=== PATIENT | female | born 1990 | race African-American/Black ===

== ENCOUNTER 2018-09-26 21:52 | Inpatient (IN) | payer OTHER ==
[~2018-09-26] VITALS: Ht 162.6 cm; Wt 94.1 kg
[~2018-09-26 21:52] MED LIST: DICL10TA PO; DOCU10CA PO; MAPA500T2 PO; MOTR200T44 PO; PRENTAB40 PO; PRENTAB43 PO
[2018-09-26] MEDS: LR 1,000 ML IV SCH (22:38)
[2018-09-26] MEDS ORDERED: LACTATED RINGER'S 1000 ML IV STA (22:38)
[2018-09-26 22:45] VITALS: BP 130/75
--- NOTE | 2018-09-26 22:55 | HPEPDOC ---
Obstetrical History & Physical General Date of Admission Sep 26, 2018 History of Present Illness 28 yo at 38+6 weeks by LMP of [id number] c/w 1st trimester US presents to L&D after having a large gush of fluid at 2100 followed by continuous leaking. The fluid was clear. She endorses intermittent contractions. She denies any vaginal bleeding. She endorses excellent movement. is uncomplicated. 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 Past Medical History Medical History Denies Surgical History: [place] teeth Family History Significant Family History: No pertinent family hx Family History Noncontributory Social History Marital Status: Family situation: Spouse/partner home Psychosocial History: No pertinent psych hx * Smoker: non-smoker Alcohol: Denies Drugs: denies Imunizations Tdap status: current Influenza Status: current Allergies Coded Allergies: No Known Allergies (Unverified , 04/13/15) Medications Miscellaneous Medications Multivitamins/ ( Multivitamin-Ult) 1 Tab Tab, 1 TAB PO Physical Examination Physical Examination GENERAL: Alert and oriented times three. ABDOMEN: Gravid and non-tender to touch. FETUS: Is vertex (VTX) by sterile vaginal examination (SVE) EXTREMITIES: No edema. Laboratory Data Urine Culture: No Growth Pertinent Laboratoy Data Blood Type: B+ RBC Antibody Screen: Negative HIV: Negative Hepatitis B: Negative Hepatitis C: Unknown Rapid Plasma Reagin: Nonreactive Rubella: Immune Varicella: Immune Chlamydia/Gonorrhea: Negative Group B Streptococcus: Negative Quad Screen Test: Unknown Cystic Fibrosis: Positive (FOB tested and negative) Glucose Tolerance Test: 166 (1hr of 166, 3hr GTT normal) Anatomy Ultrasound Placenta Location: Anterior Normal Anatomy: Yes Placenta Previa: No Steroid Therapy Steroid Therapy: No Vaginal Examination Dilation: 2cm Effacement: 70% Station: -3 Cervical Consistency: Soft Cervical Position: Posterior Position: Vertex (occiput) Assessment Heart Rate (FHR): 135 Variability: Moderate Accelerations: Positive Decelerations: None Tocometer Contractions: Yes Frequency: irregular Strength: palpated as moderate Assessment/Plan Assessment 28 yo at 38+6 weeks presented with grossly ruptured membranes. Plan Admit for expectant management of labor. Will augment if clinically indicated. Apply IV fluids. GBS negative. Patient may have epidural if she desires. clear liquid diet Anticipate . Durga Smith, DO Labor and Delivery Counseling /VAVD/FAVD counseling: Description: Deliver your baby through the vagina with possible assistance of forceps or vacuum device if needed for maternal or indications. Forceps a nd vacuum are devices that can assist with vaginal delivery when normal pushing efforts cannot achieve delivery on their own or when delivery is needed in an emergency for baby's well-being. Medications may be required to induce or augment (help) your labor in order to achieve a vaginal delivery. An episiotomy may be required to help your baby to delivery vaginally. You may also require repair of any lacerations or tears of your vagina or vulva that are caused by delivery. In some cases, emergencies can occur that require an emergency section delivery so quickly that there may not be enough time to stop and complete consent forms for section. Understand that if this occurs, your providers will discuss the need for a section with you before they proceed with surgery. section is the delivery of your baby through an incision in your abdomen. In some situations, section may be safer to mom and baby than continuing labor and is only performed when clinically indicated. Risks of vaginal delivery include but are not limited to: Bleeding, infection, injury to the vagina, pelvic structures, injury to baby, damage to the uterus, reactions to anesthesia, uterine rupture, risk of hysterectomy for life threatening bleeding, or . Medications used to induce or augment labor may increase your risk for infection, uterine tachysystole, uterine rupture, heart rate abnormalities, need for emergency delivery or possible hysterectomy, and hemorrhage. Additional risks for use of forceps and vacuum include: increased risk of perineal and vaginal lacerations, risk of urinary or bowel incontinence, increased risk of injury to baby with bruising, scratches, hematomas on the head, or intracranial bleeding. Ms. Green verbalizes understanding of these risks and elects to proceed. She also consents to blood products for transfusion should they become necessary, All patient questions answered. DO BELLA Park CHRISTOPHER J. DO Sep 26, 2018 22:55
[2018-09-26] MEDS ORDERED: OXYTOCIN DRIP 30 UNITS in APPROPRIATE DILUENT 1 EA IV SCH (23:00)
[2018-09-26 23:18] LABS: HEMATOCRIT 37.8 % (36.0-47.0); HEMOGLOBIN 12.2 g/dl (12.0-15.5); MEAN CORPUSCULAR HGB CONC 32.3 g/dl (32.0-36.5); MEAN CORPUSCULAR VOLUME 95.9 fl (80.0-96.0); PLATELET COUNT, AUTOMATED 195 10^3/uL (150-450); RED BLOOD COUNT 3.94 10^6/uL (4.00-5.40); WHITE BLOOD COUNT 8.2 10^3/uL (4.0-10.0)
[2018-09-27] VITALS (46 sets, daily range): BP systolic 100–154; BP diastolic 56–101
--- NOTE | 2018-09-27 04:28 | IPNPDOC ---
Text Note Date of Service The patient was seen on 09/27/18. NOTE Contractions have spaced on monitor. She has had some periods of minimal va riability, and one brief variable decel down to the 60s with quick recovery. Cervix: 3/50/-3. FHR is overall reassuring moderate variability, +accels. Positional changes initiated and fluid bolus was given. Pitocin has been ordered for labor augmentation. Will continue to monitor closely. Safe to proceed. DO Luis VS,Saba, I+O VS, Saba, I+O Laboratory Tests 09/26/18 23:08 Red Blood Count 3.94 L, Mean Corpuscular Volume 95.9, Mean Corpuscular Hemoglobin 31.0, Mean Corpuscular Hemoglobin Concent 32.3, Red Cell Distribution Width 14.9 H Vital Signs Date Time Temp Pulse Resp B/P (MAP) Pulse Ox O2 Delivery O2 Flow Rate FiO2 09/27/18 03:11 98.4 84 123/71 (88) I&O- Last 24 Hours up to 6 AM 09/27/18 06:00 Intake Total 250 ml Output Total 550 ml Balance -300 ml CRISTOPHER BLANCO DO Sep 27, 2018 04:28
[2018-09-27] MEDS ORDERED: REFRIGERATOR IV KEYS XX PRN (06:30)
[2018-09-27] MEDS ORDERED: ePHEDrine SULFATE 25 MG/5 ML(5MG/ML) SYRINGE IV PRN (06:30)
[2018-09-27] MEDS ORDERED: NALOXONE INJ 0.4 MG/1 ML VIAL (J2310) IV PRN ×3 (06:30→14:00)
[2018-09-27] MEDS ORDERED: FENTANYL/ROPIVACAINE/NACL BAG 100 ML EPIDURAL SCH (06:30)
[2018-09-27] MEDS ORDERED: EPIDURAL/PCA KEYS XX PRN (06:30)
[2018-09-27] MEDS ORDERED: EPIDURAL COMMENT XX SCH (06:30)
[2018-09-27] MEDS ORDERED: ONDANSETRON 4MG/2ML VIAL (J2405) IV PRN ×3 (06:30→14:30)
[2018-09-27] MEDS ORDERED: diphenhydrAMINE INJ 50MG/ML VIAL (J1200) IV PRN ×2 (06:30→14:00)
[2018-09-27] MEDS ORDERED: LACTATED RINGER'S 1000 ML IV PRN (06:30)
[2018-09-27] MEDS ORDERED: FENTANYL 2MCG/ML ROPIVACAINE 0.2% IN 0.9% NACL 100ML IVBAG As Ordered ONE (06:33)
[2018-09-27] MEDS: LR 1,000 ML IV SCH (06:38)
--- NOTE | 2018-09-27 08:41 | NUR ---
[facility] L&D Progress Note S: Anu is a 28 yo at 39 weeks admitted Sep following PROM clear fluids at 2129. She reports comfort since JAVON placement. She denies questions/concerns for oncoming staff. O: VSS/AF GEN: A&Ox3 NAD ABD: Gravid, relaxed uterine resting tone FHR: CAT I FHR TOCO: ctx q4-8 min, mild intensity via palp SCE: deferred d/t prolonged ROM A/P: Anu is a 28 y/o at 39 weeks s/p PROM at 2130 on Sep. RH + GBS NEG. CAT I FHR. Will initiate oxytocin for augmentation at this time. Safe to proceed.
--- NOTE | 2018-09-27 12:14 | NUR ---
[facility] L&D Progress S: Called to bs by nursing staff for repetitive late decelerations refractory to IVF bolus, stopping oxytocin and maternal repositioning. O: VSS/AF GEN: A&Ox3 NAD ABD: Gravid, relaxed uterine resting tone FHR: 145 minimal to moderate variability, repetitive late decelerations + 10x10 to scalp stim TOCO: ctx q2-4min, mild intensity via palp SCE: 5/80/-1 A/P: Anu is a 28 y/o at 39 weeks s/p PROM at 2130 on Sep. RH + GBS NEG. CAT II FHR despite intrauterine resuscitation. FSE/IUPC placed at this time. Will continue to dc oxytocin, adm oxygen via NRB, IVF bolus and maintain lateral positioning. Dr. Felix has reviewed the FHR and is aware of current assessment. Will proceed w/ caution.
[2018-09-27] MEDS ORDERED: BICITRA 30ML SOLN UDC As Ordered ONE (12:41)
[2018-09-27] MEDS ORDERED: BUPIVACAINE HCL 0.25% 10 ML VIAL As Ordered ONE (12:41)
[2018-09-27] MEDS ORDERED: ceFAZolin 2 GM/D5W 50 ML IV BAG (J0690 PER 500MG) As Ordered ONE (12:42)
[2018-09-27] MEDS ORDERED: ACETAMINOPHEN 650 MG SUPP As Ordered ONE (12:42)
[2018-09-27] MEDS ORDERED: AZITHROMYCIN INJ 500MG VIAL (J0456) As Ordered ONE ×2 (12:43→12:52)
[2018-09-27] MEDS ORDERED: BICITRA 30ML SOLN UDC PO ONE (12:45)
[2018-09-27] MEDS ORDERED: LIDOCAINE 2% W/EPIN INJ 20ML **PRES FREE As Ordered ONE (12:47)
[2018-09-27] MEDS ORDERED: ONDANSETRON 4MG/2ML VIAL (J2405) As Ordered ONE (12:47)
[2018-09-27] MEDS ORDERED: OXYTOCIN INJ 10 UNITS/ML VIAL (J2590) As Ordered ONE (12:47)
[2018-09-27] MEDS ORDERED: ACETAMINOPHEN 650 MG SUPP PR ONE (13:00)
[2018-09-27] MEDS ORDERED: BUPIVACAINE HCL 0.25% 10 ML VIAL SC ONE (13:00)
[2018-09-27] MEDS ORDERED: AZITHROMYCIN INJ 500 MG, VIAL MATE ADAPTER 1 EACH in D5W 250 ML IV ONE (13:00)
[2018-09-27] MEDS ORDERED: dexameTHASONE 4 MG/ML 1ML VIAL (J1100) As Ordered ONE (13:17)
[2018-09-27] MEDS ORDERED: MORPHINE PRES-FREE INJ 10 MG/10 ML VIAL (J2274) As Ordered ONE (13:18)
[2018-09-27 13:37] LABS: CORD GAS HCO3 V 27.1 MEQ/L; CORD GAS O2 SAT V 34.4 %; CORD GAS PCO2 V 58.9 mmHg; CORD GAS PH V 7.281 UNITS; CORD GAS PO2 V 18.3 mmHg; CORD GAS SBC V 22.1 MEQ/L; CORD GAS TCO2 V 28.9 MEQ/L
[2018-09-27 13:41] LABS: CORD GAS ABE A -3.9; CORD GAS HCO3 A 25.9 MEQ/L; CORD GAS O2 SAT A < 15.0 %; CORD GAS PCO2 A 68.7 mmHg; CORD GAS PH A 7.194 UNITS; CORD GAS PO2 A < 10.0 mmHg
[2018-09-27] MEDS ORDERED: METOCLOPRAMIDE INJ 10MG/2ML VIAL (J2765) IV PRN (14:00)
[2018-09-27] MEDS ORDERED: ANUSOL HC CREAM 30GM TOP PRN (14:15)
[2018-09-27] MEDS ORDERED: MOM 30ML SUSPENSION UDC PO PRN (14:15)
[2018-09-27] MEDS ORDERED: PERCOCET 5MG/325MG TAB PO PRN (14:15)
[2018-09-27] MEDS ORDERED: MEASLES,MUMPS,RUBELLA VACCINE INJ (MMR-II) (90707) SC SCH (14:15)
[2018-09-27] MEDS ORDERED: METHYLERGONOVINE MALEATE 0.2 MG TAB PO PRN (14:15)
[2018-09-27] MEDS ORDERED: DOCUSATE SODIUM 100 MG CAP PO PRN (14:15)
[2018-09-27] MEDS ORDERED: RHOGAM 300 MCG (1500 IU) INJ (J2790) IM SCH (14:15)
[2018-09-27] MEDS ORDERED: NALBUPHINE HCL 10 MG/ML AMP (J2300) IV PRN (14:30)
[2018-09-27] MEDS ORDERED: KETOROLAC 30 MG/ML VIAL (J1885) As Ordered ONE (15:11)
[2018-09-27] MEDS: KETOROLAC 30 MG/ML VIAL (J1885) IV SCH ×2 (15:14→20:54)
[2018-09-27] MEDS: PRENATAL VITAMINS CHEWABLE TABLET PO SCH (16:19)
[2018-09-27] MEDS: NALBUPHINE HCL 10 MG/ML AMP (J2300) IV PRN (19:52)
[2018-09-28 02:22] VITALS: BP 113/68
[2018-09-28] MEDS: KETOROLAC 30 MG/ML VIAL (J1885) IV SCH (03:30)
[2018-09-28] MEDS: NALBUPHINE HCL 10 MG/ML AMP (J2300) IV PRN ×2 (03:31→10:45)
[2018-09-28 06:28] VITALS: BP 121/72
[2018-09-28 08:00] LABS: HEMATOCRIT 33.2 % (36.0-47.0); HEMOGLOBIN 10.6 g/dl (12.0-15.5); MEAN CORPUSCULAR HEMOGLOBIN 30.3 pg (27.0-33.0); MEAN CORPUSCULAR HGB CONC 31.9 g/dl (32.0-36.5); MEAN CORPUSCULAR VOLUME 94.9 fl (80.0-96.0); PLATELET COUNT, AUTOMATED 210 10^3/uL (150-450); WHITE BLOOD COUNT 17.5 10^3/uL (4.0-10.0)
[2018-09-28] MEDS: PRENATAL VITAMINS CHEWABLE TABLET PO SCH (09:02)
--- NOTE | 2018-09-28 09:14 | IPN ---
DATE: 09/27/2018 28-year-old 4, para 1 at 38 and 6 weeks of gestation, presented to labor and delivery with a large of amount of fluid followed by continuous leaking. She had intermittent contractions. Her past history is that she is a multigravida. She delivered in 2014 spontaneous vaginal delivery. Over the course of her labor, she was found to have intermittent variables with reduced baseline, the occasional late deceleration and despite multiple attempts at resuscitation with IV boluses, change of position, oxygen, the pattern never got any worse but it never got any better. On examination, she is found to be 5 cm, very high presenting part, clear liqua, not engaged in the pelvis, and was now having intermittent frequent late decelerations. After discussing the situation with parents, we explained to that she has remote from delivery and that this baby would not tolerate a long period of time with this and the fact that the baby was still in good shape with no evidence of significant issues that a primary section for nonreassuring heart tones, remote from delivery would be an option of choice. After discussing risks and benefits of section, including hemorrhage, infection, perforation, , reoperation, remote possibility hysterectomy, remote possibility of blood transfusion, remote possibility of the being admitted to intensive care unit (NICU), signed and witnessed consent form, and we are planning to go ahead and do a primary section for nonreassuring heart tones, remote from delivery.
--- NOTE | 2018-09-28 09:51 | IPN ---
DATE: 09/28/2018 day 1. This patient a 6, para 2, had a primary section for nonreassuring heart tones. Remote from delivery, she had spontaneous rupture of membranes and contractions. Delivered a live female 8 pounds 2 ounces, 3690 grams, scores of nine and nine at 1 and 5 minutes respectively. Her arterial pH 7.19, base excess -3.9, venous pH 7.28, base excess -1.0. Her vital signs today her blood pressure is 121/72, respirations are 18, pulse 74, temperature 97.6. Her admitting hemoglobin was 12.2, hematocrit 37.8 and platelets were 195. day 1 hemoglobin is still pending. We discussed phlebitis, cystitis, mastitis, endometritis, cellulitis, diet, exercise, pain management, perineal, breast and wound care. Abdomen was soft, uterus 2 below. Lochia is moderate. Incision is clean and dry. Four quadrant bowel sounds are noted. She has no evidence of cough, wheezes, shortness of breath or dyspnea on exertion. No deep vein thrombosis (DVT), pulmonary embolism (PE), or superficial phlebitis. She is unable to void at the present time and it is been more than 7 hours and we are going to straight cath her to see what the residual is. Pending that, will depend whether we implement clamp and drain over the next several hours. The patient is planned on discharge for tomorrow.
[2018-09-28 10:00] VITALS: BP 127/62
[2018-09-28] MEDS: IBUPROFEN 800 MG TAB PO SCH ×2 (10:38→19:05)
[2018-09-28 14:00] VITALS: BP 110/56
[2018-09-28 17:57] VITALS: BP 116/63
[2018-09-28 22:00] VITALS: BP 118/70
[2018-09-28] MEDS: PERCOCET 5MG/325MG TAB PO PRN (22:59)
[2018-09-29 02:00] VITALS: BP 114/60
[2018-09-29] MEDS: IBUPROFEN 800 MG TAB PO SCH ×2 (02:52→10:55)
[2018-09-29 06:00] VITALS: BP 126/64
[2018-09-29] MEDS: PRENATAL VITAMINS CHEWABLE TABLET PO SCH (07:43)
[2018-09-29] MEDS: PERCOCET 5MG/325MG TAB PO PRN (08:28)
--- NOTE | 2018-09-29 09:12 | IPNPDOC ---
Text Note Date of Service The patient was seen on 09/29/18. NOTE POD2 PCD States feeling well, pain controlled with prescribed meds. Baby bonding and feeding well. No heavy VB. Lochia slowing. Ambulatory X1. Tolerating PO without issues. Voiding spont many times since rodriguez out. VSSAF NAD A&O RRR CTAB LE no C/C/E Ut at U-2, [employer] C/D/I a/p: Doing well. Cont routine postop care. D/C this AM. Sessions VS,Saba, I+O VSSaba I+O Vital Signs Date Time Temp Pulse Resp B/P (MAP) Pulse Ox O2 Delivery O2 Flow Rate FiO2 09/29/18 08:28 18 09/29/18 06:00 97.1 88 126/64 (84) 98 I&O- Last 24 Hours up to 6 AM 09/29/18 05:59 Output Total 1000 ml Balance -1000 ml SESSIONS,RENAY Petersen MD Sep 29, 2018 09:12
[2018-09-29] MEDS ORDERED: OXYC1TAB23 PO ×2 (09:51→09:52)
[2018-09-29] MEDS ORDERED: COLA100C5 PO (09:51)
[2018-09-29] MEDS ORDERED: IBUP-1114 PO (09:51)
[2018-09-29] MEDS ORDERED: ANUS2.5C2 TOP (09:51)
--- NOTE | 2018-09-30 14:57 | RO ---
DATE OF PROCEDURE: 09/27/2018 PREOPERATIVE DIAGNOSES: Nonreassuring heart tones, persistent late decelerations, reduced variability, remote from delivery, failed resuscitations. POSTOPERATIVE DIAGNOSES: Nonreassuring heart tones, persistent late decelerations, reduced variability, remote from delivery, failed resuscitations, occiput posterior. OPERATION PROPOSED: Primary section. OPERATION PERFORMED: Primary section. ANESTHESIA: Spinal plus local anesthetic for intraperitoneal procedures. ESTIMATED BLOOD LOSS: 400 mL. SURGEON: Alfonso Felix MD LASER SPECIALIST: Gerhard, certified nurse visual basic developer, for extraction, retraction, and visualization. DESCRIPTION OF PROCEDURE: After adequate time-out, prepped and draped in the supine position, Brown catheter in the bladder draining clear urine. Acetaminophen suppository 1300 mg per rectum. Sequentials on board. Appropriate antibiotic therapy preoperatively. Pfannenstiel incision was made two fingerbreadths above the symphysis pubis passing through abdominal layers, securing hemostasis. Opening peritoneal cavity, bladder was reflected well down anteriorly, low transverse incision was made into the uterus. We extracted a livebirth female weighing 3690 grams, 8 pounds 2 ounces, scores of 9 and 9 at 1 and 5 minutes, respectively. Arterial pH 7.19, base excess -3.9, venous pH 7.28, base excess -1.0. Required to use the posterior blade of the to elevate the baby's head so we could compress and push it out of the abdomen. There were three-vessels, the cord membranes and tissues intact, seemed to be moderately calcified placenta. The uterine cavity was swept. No evidence of active retained products. The uterus contracted well down on Pitocin. The lower segment was oversewn in the usual fashion in two layers. Then, imbricating the second layer, reperitonealization was performed. With instrument and pad count correct, both ovaries and tubes appeared to be normal. The abdomen was then closed, running stitch for the perineum, same for the fascia, interrupted for subcutaneous. Dexon to the skin. Marcaine 0.25% 10 mL. Telfa and spray, and the patient was sent to recovery in good condition.
== END 2018-09-29 12:00 | disposition home or self-care (01) | DRG 773 ==
LOC: M LDO 21:52 → M LDI 22:53 → M OBS 09-27 17:35
PROVIDERS: ADMIT Obstetrics & Gynecology; ATTEND Obstetrics & Gynecology
PROC: 10D00Z1 Extraction of Products of Conception, Low, Open Approach (ICD-10-PCS; principal; 2018-09-27)
DX: O76 Abnormality in fetal heart rate and rhythm complicating labor and delivery (principal); Z37.0 Single live birth; Z3A.38 38 weeks gestation of pregnancy